=== PATIENT | female | born 1965 | race Hispanic/Latino ===

== ENCOUNTER 2018-10-27 13:24 | Emergency (ER) | payer SELFPAY ==
--- NOTE | 2018-10-27 13:36 | Emergency Department Report ---
Blank Doc - Documentation Documentation: 53 y/o smoker and drinker presents to ED from [facility] where she was attempting to be seen for cough and congestion. Was found to have a Spo2 of 94% and HR of 130. Currently c/o of malaise and myalgia. Plan EKG and CXR. Labs
[2018-10-27] MEDS ORDERED: ATROVENT IH ONE (14:26)
[2018-10-27] MEDS ORDERED: PROVENTIL IH ONE (14:26)
--- NOTE | 2018-10-27 14:32 | Emergency Department Report ---
HPI - General Chief Complaint: Dyspnea/Respdistress Time Seen by Provider: 10/27/18 13:32 - HPI HPI: Room 19 The patient is a 53-year-old female presenting with a chief complaint of "not feeling well." The patient reportedly went to urgent care facility today for feeling tired, shaky and having a poor appetite for several weeks. At urgent care facility the patient was noted to have complained of cough, congestion shortness of breath and fatigue for 1 week. Patient was found to be tachycardic at 126 and hypoxic to 90% on room air was only sent to the ED for further evaluation. Patient missed an occasional cough that is productive of white spu lauren. Patient denies history of fever or nausea/vomiting. Location: [See above] Duration: [See above] Quality: [See above] Severity: [See above] Modifying factors: [see above] Context: [see above] Mode of transportation: [not driving] ED Past Medical Hx - Past Medical History Previous Medical History?: No - Surgical History Past Surgical History?: Yes Additional Surgical History: C SECTION, herniorrhaphy - Family History Family history: no significant - Social History Smoking Status: Current Every Day Smoker (1/2 pack per day) Substance Use Type: Alcohol (frequently) ED Review of Systems ROS: Stated complaint: FATIGUE/SHORTNESS OF BREATH Other details as noted in HPI Constitutional: denies: fever Eyes: denies: eye pain ENT: denies: throat pain Respiratory: cough, shortness of breath Cardiovascular: denies: chest pain Endocrine: no symptoms reported Gastrointestinal: other (poor appetite) Genitourinary: denies: dysuria Neurological: denies: headache Physical Exam - Physical Exam Vital Signs: Vital Signs 10/27/18 10/27/18 10/27/18 13:32 13:46 13:48 Temperature 98.8 F 98.4 F Pulse Rate 129 H 120 H Respiratory 24 20 21 Rate Blood Pressure 158/126 Blood Pressure 177/110 [Left] O2 Sat by Pulse 94 Oximetry Physical Exam: GENERAL: The patient is well-developed well-nourished female lying on stretcher not appearing to be in acute distress. [] HEENT: Normocephalic. Atraumatic. Extraocular motions are intact. Patient has moist mucous membranes. NECK: Supple. Trachea midline CHEST/LUNGS: Faint occasional wheeze. There is no respiratory distress noted. HEART/CARDIOVASCULAR: Regular. There is tachycardia. There is no gallop rub or murmur. ABDOMEN: Abdomen is soft, nontender. Patient has normal bowel sounds. There is no abdominal distention. SKIN: There is no rash. There is no edema. There is no diaphoresis. NEURO: The patient is awake, alert, and oriented. The patient is cooperative. The patient has no focal neurologic deficits. The patient has normal speech MUSCULOSKELETAL: There is no evidence of acute injury. ED Course Vital Signs 10/27/18 10/27/18 10/27/18 13:32 13:46 13:48 Temperature 98.8 F 98.4 F Pulse Rate 129 H 120 H Respiratory 24 20 21 Rate Blood Pressure 158/126 Blood Pressure 177/110 [Left] O2 Sat by Pulse 94 Oximetry ED Medical Decision Making - Lab Data Result diagrams: 10/27/18 14:09 10/27/18 14:09 - EKG Data -: EKG Interpreted by Me EKG shows normal: sinus rhythm Rate: tachycardia (106 bpm) - EKG Data Interpretation: nonspecific ST-T wave mark - Radiology Data Radiology results: report reviewed (chest x-ray, CT chest), image reviewed (CT chest, chest x-ray) interpreted by me: Chest x-ray-no focal infiltrates, no pneumothorax [address] [address] XRay Report Signed Patient: MICHEL BRAUN MR#: [id number] : 1965 Acct:[id number] Age/Sex: 53 / F ADM Date: 10/27/18 Loc: ED Attending Dr: Ordering Physician: AD SUAREZ Date of Service: 10/27/18 Procedure(s): XR chest 1V ap Accession Number(s): [id number] cc: AD SUAREZ Fluoro Time In Minutes: PROCEDURE: XR CHEST 1V AP TECHNIQUE: Chest radiograph single view. HISTORY: Dyspnea COMPARISONS: None . FINDINGS: There is no consolidated pneumonia. No evidence of pleural effusion. No radiographically visible pneumothorax. Cardiac silhouette size is normal. No evidence of vascular congestion. No acute displaced fracture. Nonspecific large lung volumes bilaterally suggest hyperinflation which may reflect pulmonary emphysema. IMPRESSION: Nonspecific large lung volumes may be secondary to pulmonary emphysema and/or asthma This document is electronically signed by Jt Dorman MD., October 27 2018 02:29:20 PM ET Transcribed By: BAL Dictated By: JT DORMAN MD Electronically Authenticated By: JT DORMAN MD Signed Date/Time: 10/27/18 1431 DD/ 1401 TD/TT: 10/27/18 1401 [facility] [address] [id number] Cat Scan Report Signed Patient: MICHEL BRAUN MR#: [id number] : 1965 Acct:[id number] Age/Sex: 53 / F ADM Date: 10/27/18 Loc: ED Attending Dr: Ordering Physician: YUKI ZAPIEN MD Date of Service: 10/27/18 Procedure(s): CT angio chest Accession Number(s): [id number] cc: YUKI ZAPIEN MD PROCEDURE: CT ANGIO CHEST TECHNIQUE: Computerized tomographic angiography of the chest was performed during the IV injection of iodinated nonionic contrast including image processing. The image data was postprocessed using 2-dimensional multiplanar reformatted (MPR) and 3-dimensional (MIP and/or volume rendered) techniques. Automated exposure control, adjustment of mA and/or kV according to patient size, or iterative reconstruction dose optimization techniques were utilized. CT DOSE LENGTH PRODUCT: 332 mGycm HISTORY: shortness of breath COMPARISONS: None . FINDINGS: Pulmonary out flow tract, right and left main pulmonary arteries and the approximal branches: Clear, no filling defects seen to suggest pulmonary embolus. Pericardium: No evidence of pericardial effusion. Thoracic aorta: Atherosclerotic changes are visualized, no evidence of aneurysmal dilatation or dissection. Coronary arteries: Are unremarkable. Mediastinum and hilar regions: Non specific subcentimeter lymph nodes are visualized. No pathologically enlarged lymph nodes or masses are identified. Lung Lin: Minimal emphysematous changes seen in right upper lobe. Lungs otherwise are clear. No infiltrates masses or effusions are identified. Upper abdomen: Liver density is diffusely decreased consistent with fatty infiltration. There appears to be partial sparing of fatty infiltration in the visualized portion of the right lobe of the liver. No acute abnormalities are seen in the upper abdomen. Other: No acute bone abnormalities are identified. There is mild upper thoracic scoliosis convex to the left. IMPRESSION: No evidence of pulmonary embolus. Minimal emphysematous changes present right upper lobe. Fatty infiltration of the liver as described. The entire liver is not included on this exam. Mild upper thoracic scoliosis. This document is electron ically signed by Kojo Bruno MD., October 27 2018 05:34:45 PM ET Transcribed By: DFN Dictated By: KOJO BRUNO MD Electronically Authenticated By: KOJO BRUNO MD Signed Date/Time: 10/27/18 1736 DD/ TD/TT: 10/27/18 1722 - Differential Diagnosis COPD, pneumonia, bronchitis, PE, Critical care attestation.: If time is entered above; I have spent that time in minutes in the direct care of this critically ill patient, excluding procedure time. ED Disposition Clinical Impression: COPD (chronic obstructive pulmonary disease), Shortness of breath, Hypoxia Disposition: 09 OP ADMIT IP TO THIS HOSP Is pt being admited?: Yes Does the pt Need Aspirin: Yes Condition: Fair Instructions: Chronic Obstructive Pulmonary Disease (ED) [facility] - 3-5 Days Time of Disposition: 17:40 (hospitalist paged (Dr. Arellano))
[2018-10-27 14:46] LABS: Basophils # (Auto) 0.2 K/mm3 (0.0-0.1); Basophils % (Auto) 2.9 % (0.0-1.8); Eosinophils % (Auto) 0.6 % (0.0-4.3); Hematocrit 38.6 % (30.3-42.9); Hemoglobin 13.7 gm/dl (10.1-14.3); Lymphocytes # (Auto) 2.3 K/mm3 (1.2-5.4); Lymphocytes % (Auto) 36.5 % (13.4-35.0); Mean Corpuscular HGB Conc 36 % (30-34); Mean Corpuscular Volume 119 fl (79-97); Monocytes # (Auto) 0.5 K/mm3 (0.0-0.8); Monocytes % (Auto) 7.1 % (0.0-7.3); Platelet Count 224 K/mm3 (140-440); Red Blood Count 3.24 M/mm3 (3.65-5.03); Red Cell Distribution Width 16.5 % (13.2-15.2)
[2018-10-27 14:47] LABS: Alanine Aminotransferase 69 units/L (7-56); BUN/Creatinine Ratio 18; Blood Urea Nitrogen 7 mg/dL (7-17); Calcium 8.6 mg/dL (8.4-10.2); Hemolysis Index 10
[2018-10-27] MEDS ORDERED: K-DUR PO ONE (15:08)
--- NOTE | 2018-10-27 17:36 | Cat Scan Report ---
PROCEDURE: CT ANGIO CHEST TECHNIQUE: Computerized tomographic angiography of the chest was performed during the IV injection o f iodinated nonionic contrast including image processing. The image data was postprocessed using 2-d imensional multiplanar reformatted (MPR) and 3-dimensional (MIP and/or volume rendered) techniques. A utomated exposure control, adjustment of mA and/or kV according to patient size, or iterative reconst ruction dose optimization techniques were utilized. CT DOSE LENGTH PRODUCT: 332 mGycm HISTORY: shortness of breath COMPARISONS: None . FINDINGS: Pulmonary out flow tract, right and left main pulmonary arteries and the approximal branches: Clear, no filling defects seen to suggest pulmonary embolus. Pericardium: No evidence of pericardial effusion. Thoracic aorta: Atherosclerotic changes are visualized, no evidence of aneurysmal dilatation or diss ection. Coronary arteries: Are unremarkable. Mediastinum and hilar regions: Non specific subcentimeter lymph nodes are visualized. No pathologica lly enlarged lymph nodes or masses are identified. Lung Lin: Minimal emphysematous changes seen in right upper lobe. Lungs otherwise are clear. No in filtrates masses or effusions are identified. Upper abdomen: Liver density is diffusely decreased consistent with fatty infiltration. There appear s to be partial sparing of fatty infiltration in the visualized portion of the right lobe of the live r. No acute abnormalities are seen in the upper abdomen. Other: No acute bone abnormalities are identified. There is mild upper thoracic scoliosis convex to t he left. IMPRESSION: No evidence of pulmonary embolus. Minimal emphysematous changes present right upper lobe. Fatty infiltration of the liver as described. The entire liver is not included on this exam. Mild upper thoracic scoliosis. This document is electronically signed by Kojo Brower MD., October 27 2018 05:34:45 PM ET
[2018-10-27] MEDS ORDERED: ASPIRIN PO ONE (17:50)
[2018-10-27] MEDS ORDERED: ATIVAN IV PRN ×3 (18:09)
[2018-10-27] MEDS ORDERED: SOLU-Medrol IV ONE (18:31)
[2018-10-27] MEDS ORDERED: APRESOLINE IV ONE (19:45)
[2018-10-27] MEDS ORDERED: APRESOLINE ONE (19:47)
[2018-10-27 20:37] VITALS: BP 139/97
== END 2018-10-27 20:36 | disposition home or self-care (01) ==
LOC: ED 13:24
DX: J44.9 Chronic obstructive pulmonary disease, unspecified (principal); R09.02 Hypoxemia; F17.210 Nicotine dependence, cigarettes, uncomplicated; Z88.1 Allergy status to other antibiotic agents
CPT/HCPCS: 36415; 71045; 71275; 80053; 85025; 85379; 93005; 93010; 96374; 96375; 99284; J0360; J2060; J2920; Q9967

== ENCOUNTER 2018-11-28 10:46 | Emergency (ER) | payer SELFPAY ==
--- NOTE | 2018-11-28 11:16 | Event Note ---
ED Screening Note ED Screening Note: cc sob for years worse over few days denies chills or fever no sputum CT in October no PE no home meds lives with roomate cig etoh no drugs csec VSS nad This initial assessment/diagnostic orders/clinical plan/treatment(s) is/are subject to change based on patients health status, clinical progression and re- assessment by fellow clinical providers in the ED. Further treatment and workup at subsequent clinical providers discretion. Patient/guardian urged not to elope from the ED as their condition may be serious if not clinically assessed and managed. Initial orders include: xray ro pneumonia
--- NOTE | 2018-11-28 11:50 | XRay Report ---
CHEST 2 VIEWS INDICATION: Chronic shortness of breath. COMPARISON: 10/27/2018 FINDINGS: Support devices: None. Heart: Within normal limits. Lungs/pleura: The lungs are severely hyperinflated consistent with advanced COPD. No evidence for air space opacity, mass or pleural fluid. No pneumothorax. Additional findings: None. IMPRESSION: COPD. No acute process. Signer Name: Kwasi Cancino Jr, MD Signed: 11/28/2018 11:46 AM Workstation Name: [id number]
[2018-11-28] MEDS ORDERED: PROVENTIL IH ONE ×2 (12:52→13:26)
[2018-11-28] MEDS ORDERED: DELTASONE PO ONE (12:52)
[2018-11-28] MEDS ORDERED: SOLU-Medrol IV ONE (13:25)
[2018-11-28] MEDS ORDERED: MAGNESIUM SULFATE 1 GM in NACL 0.9% 50 ML IV ONE (13:26)
[2018-11-28] MEDS ORDERED: ATROVENT IH ONE (13:27)
--- NOTE | 2018-11-28 14:24 | Emergency Department Report ---
ED General Adult HPI - General Chief complaint: Dyspnea/Respdistress Stated complaint: EMMY Time Seen by Provider: 11/28/18 11:14 Source: patient Mode of arrival: Wheelchair Limitations: No Limitations - History of Present Illness Initial comments: The patient presents to the emergency department with a chief complaint shortness of breath the last couple of days. The patient has a history of COPD and is still a current smoker. Patient states she has no medications at home to help with her COPD. Patient denies chest pain, ab pain, or headache. -: Gradual Severity scale (0 -10): 0 (HEENT is all about) Consistency: constant Improves with: rest Worsens with: movement Associated Symptoms: denies other symptoms Treatments Prior to Arrival: none - Related Data Previous Rx's Medication Instructions Recorded Last Taken Type Azithromycin [Zithromax TAB] 250 mg PO QDAY #6 tablet 10/27/18 Unknown Rx Folic Acid [Folvite] 1 mg PO QDAY #30 tablet 10/27/18 Unknown Rx Multivitamin [One-Daily 1 each PO DAILY #30 tablet 10/27/18 Unknown Rx Multi-Vitamin] Prednisone [predniSONE 10 mg 10 mg PO .TAPER #1 tab.ds.pk 10/27/18 Unknown Rx (6-Day Pack, 21 Tabs)] Thiamine [Vitamin B-1] 100 mg PO QDAY #30 tablet 10/27/18 Unknown Rx ALBUTEROL Inhaler (OR & NICU) 2 puff IH Q4HR PRN #1 inhalation 11/28/18 Unknown Rx [ProAir HFA Inhaler] Azithromycin [Zithromax Z-TRENT] 250 mg PO DAILY #6 tablet 11/28/18 Unknown Rx predniSONE [Deltasone] 20 mg PO DAILY #15 tablet 11/28/18 Unknown Rx Allergies Allergy/AdvReac Type Severity Reaction Status Date / Time bacitracin Allergy Rash Verified 11/28/18 11:10 [From Neosporin ([id number])] neomycin Allergy Rash Verified 11/28/18 11:10 [From Neosporin ([id number])] polymyxin B Allergy Rash Verified 11/28/18 11:10 [From Neosporin ([id number])] ED Review of Systems ROS: Stated complaint: EMMY Other details as noted in HPI Comment: All other systems reviewed and negative Constitutional: denies: chills, fever Eyes: denies: eye pain, eye discharge, vision change ENT: denies: ear pain, throat pain Respiratory: shortness of breath. denies: cough, wheezing Cardiovascular: denies: chest pain, palpitations Endocrine: no symptoms reported Gastrointestinal: denies: abdominal pain, nausea, diarrhea Genitourinary: denies: urgency, dysuria, discharge Musculoskeletal: denies: back pain, joint swelling, arthralgia Skin: denies: rash, lesions Neurological: denies: headache, weakness, paresthesias Psychiatric: denies: anxiety, depression Hematological/Lymphatic: denies: easy bleeding, easy bruising ED Past Medical Hx - Past Medical History Previous Medical History?: No - Surgical History Past Surgical History?: Yes Additional Surgical History: C SECTION, herniorrhaphy - Social History Smoking Status: Current Every Day Smoker Substance Use Type: Alcohol - Medications Home Medications: Home Medications Medication Instructions Recorded Confirmed Last Taken Type Azithromycin [Zithromax TAB] 250 mg PO QDAY #6 tablet 10/27/18 Unknown Rx Folic Acid [Folvite] 1 mg PO QDAY #30 tablet 10/27/18 Unknown Rx Multivitamin [One-Daily 1 each PO DAILY #30 tablet 10/27/18 Unknown Rx Multi-Vitamin] Prednisone [predniSONE 10 mg 10 mg PO .TAPER #1 tab.ds.pk 10/27/18 Unknown Rx (6-Day Pack, 21 Tabs)] Thiamine [Vitamin B-1] 100 mg PO QDAY #30 tablet 10/27/18 Unknown Rx ALBUTEROL Inhaler (OR & NICU) 2 puff IH Q4HR PRN #1 inhalation 11/28/18 Unknown Rx [ProAir HFA Inhaler] Azithromycin [Zithromax Z-TRENT] 250 mg PO DAILY #6 tablet 11/28/18 Unknown Rx predniSONE [Deltasone] 20 mg PO DAILY #15 tablet 11/28/18 Unknown Rx ED Physical Exam - General Limitations: No Limitations General appearance: alert, in no apparent distress - Head Head exam: Present: atraumatic, normocephalic - Eye Eye exam: Present: normal appearance, PERRL, EOMI - ENT ENT exam: Present: mucous membranes moist - Neck Neck exam: Present: normal inspection - Respiratory Respiratory exam: Present: wheezes. Absent: respiratory distress, rales - Cardiovascular Cardiovascular Exam: Present: regular rate, normal rhythm. Absent: systolic murmur, diastolic murmur, rubs, gallop - GI/Abdominal GI/Abdominal exam: Present: soft, normal bowel sounds. Absent: distended, tenderness - Extremities Exam Extremities exam: Present: normal inspection - Back Exam Back exam: Present: normal inspection - Neurological Exam Neurological exam: Present: alert, oriented X3, CN II-XII intact. Absent: motor sensory deficit - Psychiatric Psychiatric exam: Present: normal affect, normal mood - Skin Skin exam: Present: warm, dry, intact, normal color. Absent: rash ED Course Vital Signs 11/28/18 11/28/18 11:10 14:12 Temperature 97.6 F Pulse Rate 99 H Respiratory 16 18 Rate Blood Pressure 137/92 [Right] O2 Sat by Pulse 99 96 Oximetry ED Medical Decision Making - Lab Data Result diagrams: 11/28/18 14:12 11/28/18 14:12 Lab Results 11/28/18 11/28/18 11/28/18 Range/Units 14:12 14:12 14:12 WBC 4.7 (4.5-11.0) K/mm3 RBC 3.06 L (3.65-5.03) M/mm3 Hgb 12.8 (10.1-14.3) gm/dl Hct 36.7 (30.3-42.9) % MCV 120 H (79-97) fl MCH 42 H (28-32) pg MCHC 35 H (30-34) % RDW 16.1 H (13.2-15.2) % Plt Count 259 (140-440) K/mm3 Lymph % (Auto) 54.3 H (13.4-35.0) % [place] % (Auto) 4.6 (0.0-7.3) % Eos % (Auto) 0.4 (0.0-4.3) % Baso % (Auto) 2.5 H (0.0-1.8) % Lymph # 2.5 (1.2-5.4) K/mm3 [place] # 0.2 (0.0-0.8) K/mm3 Eos # 0.0 (0.0-0.4) K/mm3 Baso # 0.1 (0.0-0.1) K/mm3 Seg Neutrophils % 38.2 L (40.0-70.0) % Seg Neutrophils # 1.8 (1.8-7.7) K/mm3 Sodium 141 (137-145) mmol/L Potassium 3.5 L (3.6-5.0) mmol/L Chloride 98.9 (98-107) mmol/L Carbon Dioxide 27 (22-30) mmol/L Anion Gap 19 mmol/L BUN 5 L (7-17) mg/dL Creatinine 0.3 L (0.7-1.2) mg/dL Estimated GFR > 60 ml/min BUN/Creatinine Ratio 17 % Glucose 111 H (65-100) mg/dL Calcium 8.2 L (8.4-10.2) mg/dL Magnesium 2.50 H (1.7-2.3) mg/dL Total Bilirubin 0.60 (0.1-1.2) mg/dL AST 73 H (5-40) units/L ALT 48 (7-56) units/L Alkaline Phosphatase 102 (35-129) units/L NT-Pro-B Natriuret Pep 42.46 (0-900) pg/mL Total Protein 6.2 L (6.3-8.2) g/dL Albumin 3.9 (3.9-5) g/dL Albumin/Globulin Ratio 1.7 % - Radiology Data Radiology results: report reviewed - Medical Decision Making The patient's symptoms improved after a continuous albuterol and Atrovent treat ment, IV steroids, IV magnesium Critical Care Time: Yes Critical care time in (mins) excluding proc time.: 35 Critical care attestation.: If time is entered above; I have spent that time in minutes in the direct care of this critically ill patient, excluding procedure time. ED Disposition Clinical Impression: COPD exacerbation Disposition: DC-01 TO HOME OR SELFCARE Is pt being admited?: No Does the pt Need Aspirin: No Condition: Stable Instructions: Chronic Obstructive Pulmonary Disease (ED) Additional Instructions: return if worse Referrals: JAYDON GRESHAM MD [Primary Care Provider] - 3-5 Days [facility] [Provider Group] - 3-5 Days [facility] [Provider Group] - 3-5 Days Time of Disposition: 15:30
[2018-11-28 14:39] LABS: Basophils # (Auto) 0.1 K/mm3 (0.0-0.1); Basophils % (Auto) 2.5 % (0.0-1.8); Eosinophils % (Auto) 0.4 % (0.0-4.3); Hematocrit 36.7 % (30.3-42.9); Hemoglobin 12.8 gm/dl (10.1-14.3); Lymphocytes # (Auto) 2.5 K/mm3 (1.2-5.4); Lymphocytes % (Auto) 54.3 % (13.4-35.0); Mean Corpuscular HGB Conc 35 % (30-34); Mean Corpuscular Volume 120 fl (79-97); Monocytes # (Auto) 0.2 K/mm3 (0.0-0.8); Monocytes % (Auto) 4.6 % (0.0-7.3); Platelet Count 259 K/mm3 (140-440); Red Blood Count 3.06 M/mm3 (3.65-5.03); Red Cell Distribution Width 16.1 % (13.2-15.2)
[2018-11-28 15:05] LABS: BUN/Creatinine Ratio 17; Blood Urea Nitrogen 5 mg/dL (7-17); Calcium 8.2 mg/dL (8.4-10.2)
[2018-11-28 15:06] LABS: Alanine Aminotransferase 48 units/L (7-56); Albumin 3.9 g/dL (3.9-5); Hemolysis Index 22
[2018-11-28 16:08] VITALS: BP 132/86
== END 2018-11-28 16:07 | disposition home or self-care (01) ==
LOC: ED 10:46
DX: J44.9 Chronic obstructive pulmonary disease, unspecified (principal); F17.200 Nicotine dependence, unspecified, uncomplicated; Z98.890 Other specified postprocedural states; Z88.1 Allergy status to other antibiotic agents
CPT/HCPCS: 36415; 71046; 80053; 83735; 83880; 85025; 94640; 96365; 96375; 99284; J2930; J3475; J7512